=== PATIENT | male | born 2000 | race American Indian/Alaskan Native ===

== ENCOUNTER 2018-08-16 15:59 | Emergency (ER) | payer SELFPAY ==
[2018-08-16 16:47] VITALS: BP 134/82
--- NOTE | 2018-08-16 16:48 | Emergency Department Report ---
Blank Doc - Documentation Documentation: 18 y old male presents to Ed cc of Upper resp sx x 1 week cough, congestion, bumps to tongue cxr ACC
--- NOTE | 2018-08-16 17:44 | XRay Report ---
CHEST 2 VIEWS INDICATION / CLINICAL INFORMATION: cough. COMPARISON: None available. FINDINGS: SUPPORT DEVICES: None. HEART / MEDIASTINUM: No significant abnormality. LUNGS / PLEURA: No significant pulmonary or pleural abnormality. No pneumothorax. ADDITIONAL FINDINGS: No significant additional findings. IMPRESSION: 1. No acute findings. Signer Name: Aashish Jenkins MD Signed: 08/16/2018 5:40 PM Workstation Name: [email or web address]
--- NOTE | 2018-08-16 20:05 | Emergency Department Report ---
- General Chief Complaint: Upper Respiratory Infection Stated Complaint: DIF BREATHING/ALEXEI IRRITATION Time Seen by Provider: 08/16/18 16:45 Source: patient Mode of arrival: Ambulatory Limitations: No Limitations - History of Present Illness Initial Comments: Patient is a 18-year-old [place] male with no past medical history presents to the ED with complaint of mild dry cough, mild sore throat and some shortness of breath with bumps on his tongue for the last 1 week. Patient denies dizziness, nasal and sinus congestion, abdominal pain, chest pain, fever, chills, nausea, vomiting, diarrhea or headache and neck pain. MD Complaint: cough, sore throat, other (shortness of breath) -: Sudden, week(s) (1) Severity: mild Severity scale (0 -10): 0 Quality: dull Consistency: constant Improves With: nothing Worsens With: nothing Associated Symptoms: denies other symptoms, sore throat, cough, shortness of breath. denies: fever, myalgias, diaphoresis, headache, rhinorrhea, nasal congestion, stiff neck, chest pain, abdominal pain, nausea, vomiting, diarrhea, dysuria, rash, confusion, weight loss, hoarseness, ear pain Treatments Prior to Arrival: none - Related Data Previous Rx's Medication Instructions Recorded Last Taken Type Brompheniramine/Pseudoephed/Dm 5 ml PO Q6H PRN #120 ml 08/16/18 Unknown Rx [Bromfed Dm Cough Syrup] hydrOXYzine PAMOATE [Vistaril] 25 mg PO Q6HR PRN #20 capsule 08/16/18 Unknown Rx Allergies Allergy/AdvReac Type Severity Reaction Status Date / Time No Known Allergies Allergy Unverified 08/16/18 16:04 ED Review of Systems ROS: Stated complaint: DIF BREATHING/ALEXEI IRRITATION Other details as noted in HPI Constitutional: denies: chills, fever Eyes: denies: eye pain, eye discharge, vision change ENT: throat pain. denies: ear pain Respiratory: cough, shortness of breath. denies: SOB with exertion, SOB at rest, wheezing Cardiovascular: denies: chest pain, palpitations, edema, syncope, paroxysmal nocturnal dyspnea Endocrine: no symptoms reported Gastrointestinal: denies: abdominal pain, nausea, diarrhea Genitourinary: denies: urgency, dysuria Musculoskeletal: denies: back pain, joint swelling, arthralgia Skin: denies: rash, lesions Neurological: denies: headache, weakness, paresthesias Psychiatric: denies: anxiety, depression Hematological/Lymphatic: denies: easy bleeding, easy bruising ED Past Medical Hx - Past Medical History Previous Medical History?: No - Surgical History Past Surgical History?: No - Social History Smoking Status: Never Smoker Substance Use Type: None - Medications Home Medications: Home Medications Medication Instructions Recorded Confirmed Last Taken Type Brompheniramine/Pseudoephed/Dm 5 ml PO Q6H PRN #120 ml 08/16/18 Unknown Rx [Bromfed Dm Cough Syrup] hydrOXYzine PAMOATE [Vistaril] 25 mg PO Q6HR PRN #20 capsule 08/16/18 Unknown Rx ED Physical Exam - General Limitations: No Limitations General appearance: alert, in no apparent distress - Head Head exam: Present: atraumatic, normocephalic, normal inspection - Eye Eye exam: Present: normal appearance, PERRL, EOMI Pupils: Present: normal accommodation - ENT ENT exam: Present: normal exam, normal orophraynx, mucous membranes moist, TM's normal bilaterally, normal external ear exam - Neck Neck exam: Present: normal inspection, full ROM - Respiratory Respiratory exam: Present: normal lung sounds bilaterally. Absent: respiratory distress, wheezes, rales, rhonchi, stridor, chest wall tenderness, accessory muscle use, decreased breath sounds, prolonged expiratory - Cardiovascular Cardiovascular Exam: Present: regular rate, normal rhythm, normal heart sounds. Absent: systolic murmur, diastolic murmur, rubs, gallop - GI/Abdominal GI/Abdominal exam: Present: soft, normal bowel sounds. Absent: tenderness, guarding, rebound, hyperactive bowel sounds, hypoactive bowel sounds, organomegaly - Rectal Rectal exam: Present: deferred - Extremities Exam Extremities exam: Present: normal inspection, full ROM, normal capillary refill - Back Exam Back exam: Present: normal inspection, full ROM. Absent: tenderness, CVA tenderness (R), CVA tenderness (L), muscle spasm - Neurological Exam Neurological exam: Present: alert, oriented X3, CN II-XII intact, normal gait, reflexes normal - Psychiatric Psychiatric exam: Present: normal affect, normal mood - Skin Skin exam: Present: warm, dry, intact, normal color. Absent: rash ED Course Vital Signs 08/16/18 16:45 Temperature 98.1 F Pulse Rate 59 L Respiratory 18 Rate Blood Pressure 134/82 O2 Sat by Pulse 99 Oximetry - Reevaluation(s) Reevaluation #1: 08/16/18 20:04 Patient is alert and oriented 3 and is not in distress. Chest x-ray shows no acute cardiac or pulmonary abnormalities. Physical exam is unremarkable. Patient's symptoms are likely anxiety, and the bumps under the tongue normal anatomical variation. Patient is sent home and advised to follow-up with his primary care physician in 5-7 days for reevaluation or return to the ED immediately if symptoms get worse. ED Medical Decision Making - Radiology Data Radiology results: report reviewed, image reviewed Chest x-ray: No acute cardiopulmonary abnormality - Medical Decision Making Patient is alert and oriented 3 and is not in distress. Chest x-ray shows no acute cardiac or pulmonary abnormalities. Physical exam is unremarkable. Patient's symptoms are likely anxiety, and the bumps under the tongue normal anatomical variation. Patient is sent home and advised to follow-up with his primary care physician in 5-7 days for reevaluation or return to the ED immediately if symptoms get worse. - Differential Diagnosis Anxiety; Acute bronchitis Critical care attestation.: If time is entered above; I have spent that time in minutes in the direct care of this critically ill patient, excluding procedure time. ED Disposition Clinical Impression: Anxiety as acute reaction to exceptional stress Acute bronchitis Qualifiers: Bronchitis organism: unspecified organism Qualified Code(s): J20.9 - Acute bronchitis, unspecified Disposition: DC-01 TO HOME OR SELFCARE Is pt being admited?: No Does the pt Need Aspirin: No Condition: Stable Instructions: Acute Bronchitis (ED), Anxiety (ED) Additional Instructions: Take medications include, drink plenty of fluids and follow-up with your primary care physician in 5-7 days for reevaluation. Return to the ED immediately if symptoms get worse. Prescriptions: Brompheniramine/Pseudoephed/Dm [Bromfed Dm Cough Syrup] 5 ml PO Q6H PRN #120 ml PRN Reason: Cough hydrOXYzine PAMOATE [Vistaril] 25 mg PO Q6HR PRN #20 capsule PRN Reason: Anxiety Referrals: LIZY DE LA CRUZ MD [Primary Care Provider] - 3-5 Days Time of Disposition: 20:06 Print Language: RWANDAN
== END 2018-08-16 20:42 | disposition home or self-care (01) ==
LOC: ED 15:59
DX: J20.9 Acute bronchitis, unspecified (principal); F41.9 Anxiety disorder, unspecified
CPT/HCPCS: 71046; 99283